=== PATIENT | female | born 1940 | race Caucasian/White ===

== ENCOUNTER 2017-05-26 08:50 | Day surgery (SDC) | payer OTHER ==
[2017-05-26] MEDS ORDERED: NS 500 ML IV ONE (09:27)
[2017-05-26] MEDS ORDERED: LIDOCAINE 1% 2 ML INJ ID PRN (09:27)
[2017-05-26 09:32] VITALS: PULSE 67; RESP 16
--- NOTE | 2017-05-26 10:03 | PDANEPAE ---
ANE History of Present Illness EGD with bx ANE Past Medical History - Cardiovascular History Hx Hypertension: No Hx Arrhythmias: No Hx Chest Pain: No Hx Coronary Artery / Peripheral Vascular Disease: No Hx CHF / Valvular Disease: No Hx Palpitations: No - Pulmonary History Hx COPD: No Hx Asthma/Reactive Airway Disease: No Hx Recent Upper Respiratory Infection: No Hx Oxygen in Use at Home: No Hx Sleep Apnea: Yes Sleep Apnea Screening Result - Last Documented: Negative Pulmonary History Comment: Sleep study showed problems sleeping on L side-pt doesn't sleep on L side. - Neurologic History Hx Cerebrovascular Accident: No Hx Seizures: No Hx Dementia: No Neurologic History Comment: occ H/A - Endocrine History Hx Diabetes: No Hypothyroid: No Obesity: mild Endocrine History Comment: hypothyroid - Renal History Hx Renal Disorders: Yes Renal History Comment: frequent UTI's- appointment - Liver History Hx Hepatic Disorders: No - Neurological & Psychiatric Hx Hx Neurological and Psychiatric Disorders: Yes Neurological / Psychiatric History Comment: depression and anxiety w/recent case of shingles-on Rx - Cancer History Hx Cancer: No Cancer History Comment: skin CA-face - Congenital Disorder History Hx Congenital Disorders: No - GI History Hx Gastrointestinal Disorders: Yes Gastrointestinal History Comment: epigastric pain, severe nausea,GERD - Other Health History Other Health History: Skin:red bumps on upper chest - Chronic Pain History Chronic Pain: No - Surgical History Prior Surgeries: Appy (cyst inside appendix). hysterectomy. tonsillectomy age 6 ANE Review of Systems Review of systems is: negative Review of Systems: - Exercise capacity METS (RN): 4 METS ANE Patient History - Allergies Allergies/Adverse Reactions: pantoprazole Allergy (Verified 05/20/17 16:06) Rash pramipexole [From Mirapex] Allergy (Verified 05/20/17 16:06) Unknown propoxyphene [From Darvon] Allergy (Verified 05/20/17 16:06) Unknown - Home Medications Home Medications: Acyclovir 05/20/17 [Last Taken 05/25/17 06:00] CLONAZEPAM 05/20/17 [Last Taken 05/25/17 20:00] FLUoxetine 05/20/17 [Last Taken 05/26/17 06:00] Levothyroxine 05/20/17 [Last Taken 05/25/17 08:00] Probiotic 05/20/17 [Last Taken 1 Week Ago ~05/19/17] Ranitidine HCl 05/20/17 [Last Taken 05/25/17 20:00] traZODone 05/20/17 [Last Taken 3 Days Ago ~05/23/17] - NPO status NPO Since - Liquids (Date): 05/26/17 NPO Since - Liquids (Time): 06:00 NPO Since - Solids (Date): 05/25/17 NPO Since - Solids (Time): 20:00 - Anes Hx Anes Hx: no prior problems - Smoking Hx Smoking Status: Never smoked Marijuana use: No - Alcohol Use Alcohol Use: Rarely - Family Anes Hx Family Anes Hx: none ANE Labs/Vital Signs - Vital Signs Blood Pressure: 158/94 Heart Rate: 67 Respiratory Rate: 16 O2 Sat (%): 93 Height: 161.29 cm Weight: 71.668 kg ANE Physical Exam - Airway Neck exam: decreased ROM Mallampati Score: Class 3 - Pulmonary Pulmonary: no respiratory distress, no rales or rhonchi - Cardiovascular Cardiovascular: regular rate and rhythym, no murmur, rub, or gallop - ASA Status ASA Status: II ANE Anesthesia Plan Anesthesia Plan: GA with mask Total IV Anesthesia: Yes
[2017-05-26] MEDS ORDERED: PROPOFOL/EMULSION 500 MG/50 ML BOTTLE IV ONE (10:12)
[2017-05-26] MEDS ORDERED: LIDOCAINE 2% 5 ML SDV ONE (10:12)
--- NOTE | 2017-05-26 10:12 | PDGENHP ---
History & Physical Chief Complaint: epi pain History of Present Illness: epi pain, nausea Pertinent Past, Social, Family History: no alcohol, no tobacco, no cc Relevant Physical Exam: mild epi pain now. CTA. S1S2 Cardiorespiratory Assessment: class 2
--- NOTE | 2017-05-26 10:24 | POSTOPPROG ---
Post Op Note Date of Operation: 05/26/17 Surgeon: Tristian Vilchis Anesthesiologist: Abdi Anesthesia: Other (Specify) (IV general) Pre-op Diagnosis: epi pain Post-op Diagnosis: healing gastritis Indication: epi pain Procedure: egd and bx Findings: mild antral gastritis o/w nml Inf/Abcess present in the surg proc area at time of surgery?: No EBL: Minimal (few ml from bx) Total fluids administered: 150 ml NS Complications: none immediate
[2017-05-26] MEDS ORDERED: NALOXONE HCL 0.4 MG/ML INJ IVP PRN (10:53)
[2017-05-26] MEDS ORDERED: ONDANSETRON 4 MG/2 ML VIAL IVP PRN (10:53)
[2017-05-26] MEDS ORDERED: fentaNYL 100 MCG/2 ML INJ IVP PRN (10:53)
[2017-05-26] MEDS ORDERED: DEXAMETHASONE 4 MG/ML VIAL IVP PRN (10:53)
[2017-05-26] MEDS ORDERED: ONDANSETRON 4 MG/2 ML VIAL ONE (10:55)
--- NOTE | 2017-05-26 10:55 | POSTANESTH ---
Post Anesthetic Evaluation Cardiovascular Status: Normal, Stable Respiratory Status: Normal, Stable Level of Consciousness/Mental Status: Can Participate in Eval Pain Control: Adequate, Prn Tx Ordered Nausea/Vomiting Control: Adequate, Prn Tx Ordered Complications Possibly Related to Anesthesia: None Noted
--- NOTE | 2017-05-26 11:12 | GIREPORT ---
[facility] - Endoscopy Department Patient Name: Yun Burgos Procedure Date: 05/26/2017 10:06 AM Patient Type: Outpatient Attending MD/ ER Physician: Quirino Marcial Procedure: Upper GI endoscopy Indications: Epigastric abdominal pain, Nausea with vomiting Providers: Jose David Vilchis MD Referring MD: Naeem Quevedo MD Medicines: Total IV Anesthesia (TIVA) Complications: No immediate complications. Estimated blood loss: Minimal. Description of Procedure: After obtaining informed consent, the endoscope was passed under direct vision. Throughout the procedure, the patient's blood pressure, pulse, and oxygen saturations were monitored continuously. The Endoscope was intro duced through the mouth, and advanced to the third part of duodenum. The uppe r GI endoscopy was accomplished without difficulty. The patient tolerated th e procedure well. Findings: The examined esophagus was normal. A small hiatal hernia was present. Scattered mild inflammation characterized by erosions, erythema and granularity was found in the gastric antrum. Biopsies were taken with a cold forceps for histology. Estimated blood loss was minimal. The examined duodenum was normal. Estimated Blood Loss: Estimated blood loss was minimal. Post Op Diagnosis: - Normal esophagus. - Small hiatal hernia. - Gastritis. Biopsied. - Normal examined duodenum. Recommendation: - Await pathology results. - My office will call with the pathology result with 5-7 days. If you h ave not heard from my office by 06-05, do not assume the pathology is shiraz l, please call [phone] to get the pathology results. - Use Zantac (ranitidine) 300 mg PO BID for 1 month. Then can decrease to either ranitidine 150mg twice daily or 300mg once daily, then can taper as symptoms allow. - Discharge patient to home (ambulatory). - Return to GI clinic PRN. - Return to primary care physician as previously scheduled. - Thank you for allowing me to help in your patient's care. Do not hesi walters to call with any questions. Attending Participation: I personally performed the entire procedure. Mame Main M.D Jose David Vilchis MD 05/26/2017 11:12:16 AM This report has been signed electronicallyMathew MD Mame Number of Addenda: 0 Note Initiated On: 05/26/2017 10:06 AM [email or web address]
[2017-05-26 11:33] VITALS: TEMP 97.9
[2017-05-26 11:48] VITALS: BP 134/78; O2SAT 96
== END 2017-05-26 12:18 | disposition home or self-care (01) ==
LOC: FSGY 08:50
PROVIDERS: ATTEND Internal Medicine Gastroenterology
PROC: 0DB68ZX Excision of Stomach, Via Natural or Artificial Opening Endoscopic, Diagnostic (ICD-10-PCS; principal; 2017-05-26 10:15)
DX: K29.70 Gastritis, unspecified, without bleeding (principal); E03.9 Hypothyroidism, unspecified; K44.9 Diaphragmatic hernia without obstruction or gangrene
CPT/HCPCS: J2405; J2704